=== PATIENT | female | born 1985 | race Caucasian/White ===

== ENCOUNTER 2020-10-02 11:49 | Emergency (ER) | payer OTHER ==
[2020-10-02 12:58] LABS: #Basophils 0.1 thou/uL (0.0-0.2); #Lymphocytes 1.6 thou/uL (1.20-3.40); #Monocytes 0.6 thou/uL (0.11-0.59); #Neutrophils 7.7 thou/uL (1.40-6.50); %Basophils 0.8 % (0.0-1.0); %Eosinophils 0.2 % (0.0-10.0); %Lymphocytes 16.1 % (21.0-51.0); %Monocytes 6.4 % (0.0-10.0); %Neutrophils 76.4 % (42.0-75.0); Mean Corpuscular Hemoglobin 35.5 pg (27.0-31.0); Mean Platelet Volume 10.4 fL (7.4-10.4); Platelet Count 175 thou/uL (130-400); RBC Distribution Width 11.3 % (11.5-14.5); Red Blood Cell (RBC) Count 3.93 mill/uL (4.20-5.40); White Blood Cell (WBC) Count 10.1 thou/uL (4.8-10.8)
[2020-10-02 13:20] LABS: ALT (SGPT) 12 U/L (8-55); AST (SGOT) 13 U/L (5-34); Albumin 4.6 g/dL (3.5-5.0); Alkaline Phosphatase 50 U/L (40-110); Anion Gap 13 mmol/L (10-20); BUN (Urea Nitrogen) 6 mg/dL (7.0-18.7); Bilirubin, Total 0.8 mg/dL (0.2-1.2); Calc. Creatinine Clearance 0 mL/min (70-130); Calcium 9.1 mg/dL (7.8-10.44); Carbon Dioxide 25 mmol/L (22-29); Chloride 106 mmol/L (98-107); Glucose 116 mg/dL (70-105); Potassium 3.6 mmol/L (3.5-5.1); Protein, Total 7.6 g/dL (6.0-8.3); Sodium 140 mmol/L (136-145)
[2020-10-02 13:39] LABS: Free T4 (Free Thyroxine) 1.15 ng/dL (0.70-1.48); Thyroid Stimulating Hormone 1.4562 uIU/mL (0.35-4.94)
--- NOTE | 2020-10-02 14:55 | ULT ---
Exam: Thyroid ultrasound HISTORY: Weight loss. Hoarse voice. COMPARISON: None. FINDINGS: There is diffuse heterogeneity throughout the thyroid gland. Right thyroid lobe: 1.4 x 4.2 x 1.2 Left thyroid lobe: 1.2 x 4.4 x 1.3 Thyroid isthmus: 0.2 cm Thyroid nodules: There are no solid or cystic nodules in the right thyroid lobe. In the left thyroid lobe, there is a 0.5 x 0.5 x 0.9 cm cyst. IMPRESSION: 1. Diffuse heterogeneity throughout the thyroid gland. 2. Incidental left thyroid lobe cyst. 3. TI-RADS category 1 - negative exam. Transcribed Date/Time: 10/02/2020 2:59 PM
== END 2020-10-02 14:53 | disposition home or self-care (01) ==
LOC: ERS 11:49
DX: E04.1 Nontoxic single thyroid nodule (principal); R63.4 Abnormal weight loss
CPT/HCPCS: 76536; 80053; 84439; 84443; 85025

== ENCOUNTER 2020-11-10 11:30 | Outpatient (CLI) | payer OTHER ==
[2020-11-11 03:44] LABS: SARS-CoV-2 PCR by NAA Not Detected (NotDetected)
== END 2020-11-10 11:31 | disposition home or self-care (01) ==
LOC: LABBT 11:30
PROVIDERS: ATTEND Specialist
DX: Z20.822 Contact with and (suspected) exposure to COVID-19 (principal)
CPT/HCPCS: 87635; U0003; U0005

== ENCOUNTER 2020-11-14 10:25 | Outpatient (CLI) | payer OTHER ==
--- NOTE | 2020-11-14 16:17 | RAD ---
Small bowel exam HISTORY: Abdomen pain. FINDINGS: Normal anatomic appearance of the stomach and duodenum. Mucosal pattern of the small bowel is within normal limits. No abnormal dilatation. The terminal ileum was reached at 30 minutes and has a normal appearance. Appendiceal base only parti ally visualized. IMPRESSION : Rapid small bowel transit. No focal abnormalities are demonstrated.
== END 2020-11-14 10:26 | disposition home or self-care (01) ==
LOC: RAD 10:25
PROVIDERS: ATTEND Specialist
DX: R13.10 Dysphagia, unspecified (principal)
CPT/HCPCS: 74250

== ENCOUNTER 2021-02-17 08:44 | Outpatient (CLI) | payer OTHER | END 2021-02-17 08:45 | disposition home or self-care (01) | LOC: BICULT 08:44 | PROVIDERS: ATTEND Family Medicine | DX: N83.8 Other noninflammatory disorders of ovary, fallopian tube and broad ligament (principal); N83.202 Unspecified ovarian cyst, left side; N83.201 Unspecified ovarian cyst, right side | CPT/HCPCS: 76856 ==

== ENCOUNTER 2023-01-28 09:59 | Outpatient (CLI) | payer OTHER | END 2023-01-28 10:00 | disposition home or self-care (01) | LOC: ULT 09:59 | PROVIDERS: ATTEND Obstetrics & Gynecology | DX: R30.0 Dysuria (principal); Q44.6 Cystic disease of liver; K76.9 Liver disease, unspecified | CPT/HCPCS: 76705; 76856 ==

== ENCOUNTER 2024-01-27 08:05 | Outpatient (CLI) | payer OTHER | END 2024-01-27 08:06 | disposition home or self-care (01) | LOC: BICULT 08:05 | PROVIDERS: ATTEND Student in an Organized Health Care Education/Training Program | DX: Z86.39 Personal history of other endocrine, nutritional and metabolic disease (principal) | CPT/HCPCS: 76536 ==